=== PATIENT | female | born 1990 | race Caucasian/White ===

== ENCOUNTER 2017-07-22 09:56 | Emergency (ER) | payer OTHER ==
[~2017-07-22] VITALS: Wt 83.5 kg
[~2017-07-22 09:56] MED LIST: BACTDS PO; CEPH-443 PO
[2017-07-22 11:44] LABS: ADD UMIC YES; UR ASCORBIC ACID NEGATIVE (NEGATIVE); UR BACTERIA FEW /HPF (NONE SEEN); UR BILIRUBIN (Dip) NEGATIVE (NEGATIVE); UR BLOOD (Dip) NEGATIVE (NEGATIVE); UR CLARITY CLEAR (CLEAR); UR COLOR STRAW (YELLOW); UR GLUCOSE (Dip) NEGATIVE (NEGATIVE); UR KETONES (Dip) NEGATIVE (NEGATIVE); UR LEUKOCYTE ESTERASE (Dip) TRACE Leu/ul (NEGATIVE); UR NITRITE (Dip) NEGATIVE (NEGATIVE); UR RBC 1 /HPF (0-5); UR SPECIFIC GRAVITY (Dip) 1.013 (1.003-1.030); UR SQUAMOUS EPITHELIAL CELL FEW /HPF (FEW); UR TOTAL PROTEIN (Dip) NEGATIVE (NEGATIVE); UR UROBILINOGEN (Dip) NEGATIVE (NEGATIVE)
[2017-07-22 12:08] LABS: ALBUMIN 4.7 g/dl (3.3-4.9); ALBUMIN/GLOBULIN RATIO 1.42; BILIRUBIN,INDIRECT 0.3 mg/dl (0-1.1); BILIRUBIN,TOTAL 0.3 mg/dl (0.2-1.3); CALCIUM 9.1 mg/dl (8.4-10.2); CREATININE 0.72 mg/dl (0.44-1.00); POTASSIUM 3.9 mmol/L (3.5-5.1)
[2017-07-22 12:13] LABS: BASOPHILS % 0.3 % (0.0-2.0); EOSINOPHILS % 0.3 % (0.0-7.0); HEMATOCRIT 35.1 % (37.0-47.0); HEMOGLOBIN 11.4 g/dl (12.0-16.0); LYMPHOCYTES # 1.6 10^3/ul (0.8-2.9); LYMPHOCYTES % 17.2 % (15.0-51.0); MEAN CORPUSCULAR HEMOGLOBIN 24.4 pg (29.0-33.0); MEAN CORPUSCULAR HGB CONC 32.5 g/dl (32.0-37.0); MEAN PLATELET VOLUME 10.3 fl (7.4-10.4); MONOCYTE # 0.4 10^3/ul (0.3-0.9); MONOCYTES % 3.7 % (0.0-11.0); NEUTROPHIL # 7.5 10^3/ul (1.6-7.5); NEUTROPHILS % 78.3 % (39.0-77.0); PLATELET COUNT 438 10^3/UL (140-415); RED BLOOD COUNT 4.68 10^6/ul (4.20-5.40); RED CELL DISTRIBUTION WIDTH 17.2 % (11.5-14.5); WHITE BLOOD COUNT 9.5 10^3/ul (4.8-10.8)
--- NOTE | 2017-07-22 12:42 | RADRPT ---
PROCEDURE: US Pelvis CLINICAL INDICATION: Bilateral pelvic pain TECHNIQUE: Multiple sonographic images of the pelvis were obtained utilizing a transabdominal and endovaginal technique. The images were reviewed on a PACS workstation. COMPARISON: None. LMP: 06/26/2017 FINDINGS: The uterus measures 8.6 x 5.3 x 5.4 cm. The endometrial echo complex measures 14 mm in thickness. No discrete lesion is seen. The right ovary measures 3.7 x 2.3 x 3.0 cm. The left ovary measures 2.6 x 1.3 x 1.6 cm. There is no rmal vascular flow in both ovaries. There is a 2.5 cm complex cystic lesion with low level internal echoes, thick tomlinson, and prominent p eripheral vascular flow in the right ovary which is likely a hemorrhagic/corpus luteal cyst. No significant pelvic free fluid is identified. IMPRESSION: 2.5 cm complex cystic lesion in the right ovary is likely a hemorrhagic/corpus luteal cyst. Normal vascular flow to bilateral ovaries. RPTAT: EE Physician Elvia Date Time Electronically viewed and signed by Physician Elvia on 07/22/2017 12:42 /
[2017-07-22] MEDS ORDERED: OMEP40CA6 PO (13:04)
[2017-07-22] MEDS ORDERED: ACET500C5 PO (13:04)
[2017-07-22] MEDS ORDERED: RANI150T9 PO (13:04)
[2017-07-22 13:16] VITALS: BP 133/75; PULSE 100; RESP 20; TEMP 98.1
--- NOTE | 2017-07-22 20:33 | ERD ---
ER Documentation Chief Complaint Chief Complaint epigastric pain rad to back w n/v HPI 27-year-old female complaining of epigastric abdominal pain since last night. Patient stated that she vomited 3 times. She had dinner at 11 PM, and abdominal pain onset 3 hours later. The pain is resolved now. Patient has history of frequent epigastric pain in the past. Her diet also include spicy and greasy foods. Last bowel movement was this morning, which was normal. LMP 06/07/2017. Denies fever or chills. Denies dysuria. Denies diarrhea or constipation. Shortness of breath. Denies chest pain or palpitations. ROS All systems reviewed and are negative except as per history of present illness. Medications Home Meds Active Scripts Ranitidine Hcl* (Zantac*) 150 Mg Tablet, 150 MG PO BID Y for EPIGASTRIC PAIN, # 30 TAB Prov:ALBAN LEBLANC NP 07/22/17 Omeprazole* (Omeprazole*) 40 Mg Capsule.dr, 40 MG PO QAM, #14 CAP Prov:ALBAN LEBLANC. ELÍAS 07/22/17 Acetaminophen* (Tylophen*) 500 Mg Capsule, 1 CAP PO Q6H Y for PAIN AND OR ELEVATED TEMP, #20 CAP Prov:ALBAN LEBLANC SECURITY GUARD DISPATCHER 07/22/17 Cephalexin* (Keflex*) 500 Mg Capsule, 500 MG PO QID for 7 Days, CAP Prov:NICK URBAN PA-C 03/05/16 Sulfamethoxazole-Trimethoprim* (Bactrim* DS) 800-160 Mg Tab, 1 TAB PO BID for 7 Days, TAB Prov:NICK URBAN PA-C 03/05/16 Allergies Allergies: Coded Allergies: No Known Allergy (Unverified , 03/05/16) PMhx/Soc Medical and Surgical Hx: pt denies Medical Hx, pt denies Surgical Hx History of Surgery: No Anesthesia Reaction: No Hx Neurological Disorder: No Hx Respiratory Disorders: No Hx Cardiac Disorders: No Hx Psychiatric Problems: No Hx Miscellaneous Medical Probl: No Hx Alcohol Use: No Hx Substance Use: No Hx Tobacco Use: No Smoking Status: Never smoker Physical Exam Vitals Vital Signs Date Time Temp Pulse Resp B/P Pulse Ox O2 Delivery O2 Flow Rate FiO2 07/22/17 13:16 98.1 100 20 133/75 99 Room Air 07/22/17 10:01 97.3 96 20 132/76 98 Physical Exam General: Well-developed, well-nourished, conscious and coherent, in no distress Skin: Warm and dry without rash, good texture and turgor Head: Normocephalic without evidence of trauma Eyes: Sclera and conjunctivae normal; pupils equal, round, and reactive to light; extraocular movements are intact Chest: Normal AP diameter. Good expansion without retractions. Nontender. Lungs are clear to auscultate bilaterally with good tidal volume Heart: Regular rate and rhythm. No murmur, rub, or gallops heard Abdomen: Soft, epigastric tenderness without masses, guarding, or rebound. No McBurney point tenderness. Bowel sounds are active. No hepatosplenomegaly Back: Without spinal or CVA tenderness Pelvis: Right pelvic tenderness to palpation Extremities: Full range of motion. Good strength bilaterally. No clubbing, cyanosis, or edema. Peripheral pulses are intact. Sensation intact Neuro: Alert and oriented 4, GCS 15. Cranial nerves grossly intact. Motor and sensory exams nonfocal. Moves all extremities. Speech clear. Gait normal Result Diagram: 07/22/17 1100 07/22/17 1100 Results 24 hrs Laboratory Tests Test 07/22/17 11:00 White Blood Count 9.510^3/ul Red Blood Count 4.6810^6/ul Hemoglobin 11.4g/dl Hematocrit 35.1% Mean Corpuscular Volume 75.0fl Mean Corpuscular Hemoglobin 24.4pg Mean Corpuscular Hemoglobin Concent 32.5g/dl Red Cell Distribution Width 17.2% Platelet Count 83484^3/UL Mean Platelet Volume 10.3fl Neutrophils % 78.3% Lymphocytes % 17.2% Monocytes % 3.7% Eosinophils % 0.3% Basophils % 0.3% Nucleated Red Blood Cells % 0.0/100WBC Neutrophils # 7.510^3/ul Lymphocytes # 1.610^3/ul Monocytes # 0.410^3/ul Eosinophils # 0.010^3/ul Basophils # 0.010^3/ul Nucleated Red Blood Cells # 0.010^3/ul Urine Color STRAW Urine Clarity CLEAR Urine pH 6.0 Urine Specific Debord 1.013 Urine Ketones NEGATIVEmg/dL Urine Nitrite NEGATIVEmg/dL Urine Bilirubin NEGATIVEmg/dL Urine Urobilinogen NEGATIVEmg/dL Urine Leukocyte Esterase TRACELeu/ul Urine Microscopic RBC 1/HPF Urine Microscopic WBC 2/HPF Urine Squamous Epithelial Cells FEW/HPF Urine Bacteria FEW/HPF Urine Hemoglobin NEGATIVEmg/dL Urine Glucose NEGATIVEmg/dL Urine Total Protein NEGATIVEmg/dl Sodium Level 141mmol/L Potassium Level 3.9mmol/L Chloride Level 105mmol/L Carbon Dioxide Level 25mmol/L Anion Gap 15 Blood Urea Nitrogen 11mg/dl Creatinine 0.72mg/dl Glucose Level 100mg/dl Calcium Level 9.1mg/dl Total Bilirubin 0.3mg/dl Direct Bilirubin 0.00mg/dl Indirect Bilirubin 0.3mg/dl Aspartate Amino Transf (AST/SGOT) 26IU/L Alanine Aminotransferase (ALT/SGPT) 34IU/L Alkaline Phosphatase 86IU/L Total Protein 8.0g/dl Albumin 4.7g/dl Globulin 3.30g/dl Albumin/Globulin Ratio 1.42 Lipase 70U/L PROCEDURE: US Pelvis CLINICAL INDICATION: Bilateral pelvic pain TECHNIQUE: Multiple sonographic images of the pelvis were obtained utilizing a transabdominal and endovaginal technique. The images were reviewed on a PACS workstation. COMPARISON: None. LMP: 06/26/2017 FINDINGS: The uterus measures 8.6 x 5.3 x 5.4 cm. The endometrial echo complex measures 14 mm in thickness. No discrete lesion is seen. The right ovary measures 3.7 x 2.3 x 3.0 cm. The left ovary measures 2.6 x 1.3 x 1.6 cm. There is normal vascular flow in both ovaries. There is a 2.5 cm complex cystic lesion with low level internal echoes, thick tomlinson, and prominent peripheral vascular flow in the right ovary which is likely a hemorrhagic/corpus luteal cyst. No significant pelvic free fluid is identified. IMPRESSION: 2.5 cm complex cystic lesion in the right ovary is likely a hemorrhagic/corpus luteal cyst. Normal vascular flow to bilateral ovaries. RPTAT: EE Physician Elvia Date Time Electronically viewed and signed by Physician Elvia on 07/22/2017 12:42 RA/ CC: ALBAN LEBLANC. SECURITY GUARD DISPATCHER Procedures/MDM Well-appearing 27-year-old female presented ED with epigastric abdominal pain last night. The pain onset after eating greasy foods. Patient currently does not have any pain, only slight epigastric tenderness. The right upper quadrant tenderness. Low suspicion for cholelithiasis or cholecystitis. Patient noted to have right lower quadrant/right pelvic tenderness on exam. CBC , CMP, lipase, UA, and pelvic ultrasound was obtained. CBC, CMP, lipase, and UA are unremarkable. Patient does not have any McBurney point tenderness. Low suspicion for acute appendicitis. The ultrasound showed a 2.5 cm complex cystic lesion on the right ovary, likely a hemorrhagic/corpus luteal cyst. Patient's urine test is negative. Low suspicion for ectopic . Patient appears well, stable for discharge and outpatient management. Medical decision making shared with patient and family. Education provided to patient and family. Patient and family expressed understanding of the plan. Medications on discharge: Tylenol, omeprazole, ranitidine. Follow-up: Primary care provider in 2-3 days or return to ED if worse. Disclaimer: Inadvertent spelling and grammatical errors are likely due to EHR/ dictation software use and do not reflect on the overall quality of patient care. Also, please note that the electronic time recorded on this note does not necessarily reflect the actual time of the patient encounter. Departure Diagnosis: Primary Impression: Epigastric pain Additional Impression: Ovarian cyst Condition: Stable Patient Instructions: Ovarian Cyst, Epigastric Pain (Uncertain Cause) Referrals: DOCTOR,NOT ON STAFF [facility] YOU HAVE RECEIVED A MEDICAL SCREENING EXAM AND THE RESULTS INDICATE THAT YOU DO NOT HAVE A CONDITION THAT REQUIRES URGENT TREATMENT IN THE EMERGENCY DEPARTMENT. FURTHER EVALUATION AND TREATMENT OF YOUR CONDITION CAN WAIT UNTIL YOU ARE SEEN IN YOUR DOCTORS OFFICE WITHIN THE NEXT 1-2 DAYS. IT IS YOUR RESPONSIBILITY TO MAKE AN APPOINTMENT FOR FOLOW-UP CARE. IF YOU HAVE A PRIMARY DOCTOR --you should call your primary doctor and schedule an appointment IF YOU DO NOT HAVE A PRIMARY DOCTOR YOU CAN CALL OUR PHYSICIAN REFERRAL HOTLINE AT IF YOU CAN NOT AFFORD TO SEE A PHYSICIAN YOU CAN CHOSE FROM THE FOLLOWING [facility] [address] [facility]. [facility] [phone] [facility]. [facility] [address] [facility]. [facility] [phone] [facility]. [facility] [address] [facility]. [facility] [address] [employer] [address] [facility] [address] [place] [address] OFFICE FAX , [facility] [address] [place] [address] [address]. RAJANFORMERLY [facility] [address] [place] [address] [address] [facility] [address] [facility] [address] [address] [address] [place] [address] [facility] [address] [place] [address] [address] [facility] [id number] - [address] [facility] [address] [address] [address] [facility]. [address], [facility] [address] [address] [address] [place] [address] Additional Instructions: Call your primary care doctor TOMORROW for an appointment during the next 2-3 days.See the doctor sooner or return here if your condition worsens before your appointment time. ALBAN LEBLANC NP Jul 22, 2017 20:33
== END 2017-07-22 13:18 | disposition home or self-care (01) ==
LOC: FTE 09:56
DX: R10.13 Epigastric pain (principal); N83.201 Unspecified ovarian cyst, right side; R10.2 Pelvic and perineal pain
CPT/HCPCS: 36415; 76830; 76856; 80053; 81001; 83690; 85025; Z7502

== ENCOUNTER 2017-10-10 00:38 | Emergency (ER) | END 2017-10-10 03:47 | disposition home or self-care (01) ==

== ENCOUNTER 2018-05-15 10:22 | Emergency (ER) | END 2018-05-15 14:45 | disposition home or self-care (01) ==

== ENCOUNTER 2018-05-20 22:05 | Emergency (ER) | END 2018-05-21 00:56 | disposition home or self-care (01) ==